=== PATIENT | female | born 1935 | race Caucasian/White ===

== ENCOUNTER 2023-06-12 17:07 | Emergency (ER) | payer MEDICARE ==
[2023-06-12] MEDS ORDERED: MORPHINE SULFATE 2 MG/ML SYRINGE IVP ONE (19:34)
[2023-06-12 19:48] VITALS: TEMP 98.1
--- NOTE | 2023-06-12 20:00 | ED ---
General Adult HPI - General Chief complaint: Fall Stated complaint: Femur Fracture Time Seen by Provider: 06/12/23 17:44 Source: patient, family, EMS, RN notes reviewed Mode of arrival: EMS Limitations: physical limitation - History of Present Illness Initial comments: 87-year-old female presents emergency department for evaluation of right leg injury. Patient was transferred from [facility] for higher level of care. Patient points that she slipped and fell on ice today landing on her right knee. She reports that since then she has been unable to ambulate on the right leg. 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 Denies any other injury, denies head injury. Review of Systems ROS Statement: Those systems with pertinent positive or pertinent negative responses have been documented in the HPI. ROS Other: All systems not noted in ROS Statement are negative. General Exam Limitations: physical limitation General appearance: alert, in no apparent distress Head exam: Present: atraumatic, normocephalic, normal inspection Eye exam: Present: normal appearance, PERRL, EOMI. Absent: scleral icterus, conjunctival injection, periorbital swelling ENT exam: Present: normal exam, mucous membranes moist Respiratory exam: Present: normal lung sounds bilaterally. Absent: respiratory distress, wheezes, rales, rhonchi, stridor Cardiovascular Exam: Present: regular rate, normal rhythm, normal heart sounds. Absent: systolic murmur, diastolic murmur, rubs, gallop, clicks Extremities exam: Present: tenderness, normal capillary refill. Absent: full ROM Back exam: Present: normal inspection Neurological exam: Present: alert, oriented X3, CN II-XII intact. Absent: normal gait Psychiatric exam: Present: normal affect, normal mood Skin exam: Present: warm, dry, intact, normal color. Absent: rash Course Vital Signs 06/12/23 06/12/23 06/12/23 17:16 19:41 22:15 Temperature 97.6 F 98.1 F Pulse Rate 80 85 95 Respiratory 18 16 18 Rate Blood Pressure 109/79 109/79 110/62 O2 Sat by Pulse 96 98 96 Oximetry Medical Decision Making - Medical Decision Making Was pt. sent in by a medical professional or institution (, PA, AIRCRAFT NAVIGATOR, urgent care, hospital, or senior care...) When possible be specific @ -No Did you speak to anyone other than the patient for history (EMS, parent, family, police, friend...)? What history was obtained from this source @ -No Did you review nursing and triage notes (agree or disagree)? Why? @ -I reviewed and agree with nursing and triage notes Were old charts reviewed (outside hosp., previous admission, EMS record, old EKG, old radiological studies, urgent care reports/EKG's, senior care records)? Report findings @ -XR from outside facility shows right total knee arthroplasty with no evidence of hardware failure with acute comminuted fracture of the distal shaft and metaphysis of the right femur with with mild displacement of the fracture fragments Laboratory studies from outside facility reviewed including PT 10.8, INR 1.01, PTT 27.9; sodium 134, potassium 3.3, chloride 96, BUN 16, creatinine 0.97; WBC 11.8, hemoglobin 12.1, hematocrit 36.5 Differential Diagnosis (chest pain, altered mental status, abdominal pain women, abdominal pain men, vaginal bleeding, weakness, fever, dyspnea, syncope, headache, dizziness, GI bleed, back pain, seizure, CVA, palpatations, mental health, musculoskeletal)? @ -Differential Musculoskeletal Muscular strain, contusion, ligament sprain, fracture, arthritis, septic arthritis, bursitis, cellulitis, muscle spasm, nerve compression, DVT, arterial occlusion, herpes zoster, electrolyte abnormality, tumor.... This is not meant to be in all inclusive list EKG interpreted by me (3pts min.). @ -None X-rays interpreted by me (1pt min.). @ -None done CT interpreted by me (1pt min.). @ -None done U/S interpreted by me (1pt. min.). @ -None done What testing was considered but not performed or refused? (CT, X-rays, U/S, labs)? Why? @ -None What meds were considered but not given or refused? Why? @ -None Did you discuss the management of the patient with other professionals (professionals i.e. , PA, AIRCRAFT NAVIGATOR, lab, RT, psych nurse, rn social work, strainer mill operator, teacher, assignment officer, casey saw operator)? Give summary @ -Case discussed with Dr. Barnes who recommends transfer of the patient for higher level of care. Management discussed with Angeline with [facility]. Dr. Delgado is the accepting physician Was smoking cessation discussed for >3mins.? @ -No Was critical care preformed (if so, how long)? @ -No Were there social determinants of health that impacted care today? How? (Homelessness, low income, unemployed, alcoholism, drug addiction, transportation, low edu. Level, literacy, decrease access to med. care, custodial, rehab)? @ -No Was there de-escalation of care discussed even if they declined (Discuss DNR or withdrawal of care, Hospice)? DNR status @ -No What co-morbidities impacted this encounter? (DM, HTN, Smoking, COPD, CAD, Cancer, CVA, ARF, Chemo, Hep., AIDS, mental health diagnosis, sleep apnea, morbid obesity)? @ -None Was patient admitted / discharged? Hospital course, mention meds given and route, prescriptions, significant lab abnormalities, going to OR and other pertinent info. @ -transferred. Patient presented as a transfer from [facility] with prosthetic right distal femur fracture. Emergency accepting physician of the transfer. Patient was brought to our emergency department and imaging from [facility] was reviewed. X-ray of the femur shows right total knee arthroplasty with no evidence of hardware failure with acute comminuted fracture of the distal shaft and metaphysis of the right femur with mild displacement of the fracture fragments. Laboratory studies from outside facility were reviewed as well. PT 10.8, INR 1.01, PTT 27.9; sodium 134, potassium 3.3, chloride 96, BUN 16, creatinine 0.97; WBC 11.8, hemoglobin 12.1, hematocrit 36.5. Case [facility] Dr[facility] Barnes who recommends transfer of the patient for higher level of care after reviewing patient's imaging. [facility] was contacted as a traumatic fall without trauma activation, patient was accepted for transfer by Dr. Delgado. Patient stable at time of transfer. Case discussed with Dr. Kimble. Undiagnosed new problem with uncertain prognosis? @ -No Drug Therapy requiring intensive monitoring for toxicity (Heparin, Nitro, Insulin, Cardizem)? @ -No Were any procedures done? @ -No Diagnosis/symptom? @ -periprosthetic right femur fracture Acute, or Chronic, or Acute on Chronic? @ -acute Uncomplicated (without systemic symptoms) or Complicated (systemic symptoms)? @ -uncomplicated Side effects of treatment? @ -No Exacerbation, Progression, or Severe Exacerbation? @ -No Poses a threat to life or bodily function? How? (Chest pain, [place], [place], pneumonia, PE, COPD, DKA, ARF, appy, cholecystitis, CVA, Diverticulitis, Homicidal, Suicidal, threat to staff... and all critical care pts) @ -No Disposition Clinical Impression: Fall, Prema-prosthetic fracture of shaft of femur Disposition: OTHER INSTITUTION NOT DEFINED Condition: Stable Is patient prescribed a controlled substance at d/c from ED?: No Referrals: Marco Antonio Hansen MD [Primary Care Provider] - 1-2 days - Out of Hospital Transfer - Req. Specs Out of Hospital Transfer - Requested Specifics: Other Emergency Center ([facility])
[2023-06-12 22:26] VITALS: BP 110/62; PULSE 95; RESP 18
== END 2023-06-12 22:30 | disposition other institution (70) ==
LOC: EC 17:07
DX: S72.351A Displaced comminuted fracture of shaft of right femur, initial encounter for closed fracture (principal); M97.11XA Periprosthetic fracture around internal prosthetic right knee joint, initial encounter; Z96.651 Presence of right artificial knee joint; W00.0XXA Fall on same level due to ice and snow, initial encounter
CPT/HCPCS: 99285; 96374; J2270